=== PATIENT | male | born 1945 | race Caucasian/White ===

== ENCOUNTER → 2017-06-12 | Outpatient (CLI) | payer MEDICARE, OTHER ==
[~2017-06-12] MED LIST: CALCIUM 500 +1 EAC5; CALCIUM 600 +1 EAC1 PO; CARVEDILOL3.125 MG PO; CENTRUM SILVER1 EAC2; CENTRUM SILVER1 EAC4 PO; CITRUCEL479 GM PO; CITRUCEL500 MG; FISH OIL 1,001000 M1 PO; FISH OIL 1,001000 M2 PO; PROTONIX40 M1 PO
== END ==
LOC: M.RAD 10:35
DX: R05 Cough (principal); R07.9 Chest pain, unspecified

== ENCOUNTER → 2019-12-28 | Outpatient (CLI) | payer MEDICARE, OTHER ==
[2019-12-28 09:51] LABS: ABSOLUTE EOSINOPHILS 0.2 thou/uL (0.0-0.7); ABSOLUTE MONOCYTES 0.4 thou/uL (0.0-1.2); ABSOLUTE NEUTROPHILS 3.4 thou/uL (1.6-8.1); BASOPHILS 0.3 %; EOSINOPHILS 1.5 %; HEMATOCRIT 40.3 % (42.0-52.0); HEMOGLOBIN 12.9 gm/dL (14.0-18.0); LYMPHOCYTES 74.6 %; MCH 28.2 pg (26.0-34.0); MCHC 32.1 g/dL (28.0-37.0); MCV 87.9 fL (80.0-100.0); MONOCYTES 2.3 %; MPV 8.4 fl. (7.2-11.1); NUCLEATED RBCS 0 /100WBC; PLATELET COUNT* 180 thou/uL (150-400); POLYS 21.3 %; RBC 4.59 mil/uL (4.50-6.00); RDW-CV 13.3 % (10.5-14.5); WBC 16.1 thou/uL (4.0-11.0)
[2019-12-28 10:03] LABS: ALBUMIN 3.7 g/dL (3.4-5.0); CALCIUM 8.7 mg/dL (8.5-10.1); CREATININE 1.2 mg/dL (0.6-1.3); POTASSIUM 5.2 mmol/L (3.5-5.1); TOTAL BILIRUBIN 0.9 mg/dL (<0.1-1.0); TOTAL PROTEIN 6.7 g/dL (6.4-8.2)
[2019-12-28 21:05] LABS: IgA 70 mg/dL (61-437); IgG 694 mg/dL (603-1613); IgM 35 mg/dL (15-143)
== END ==
LOC: M.LAB 09:33
PROVIDERS: ATTEND Internal Medicine Medical Oncology
DX: D72.829 Elevated white blood cell count, unspecified (principal)